=== PATIENT | female | born 1960 | race Caucasian/White ===

== ENCOUNTER 2020-04-18 18:35 | Inpatient (IN) | payer BC ==
--- NOTE | 2020-04-18 18:41 | PDOC ---
Rapid Medical Evaluation Time Seen by Provider: 04/18/20 18:38 Medical Evaluation: Allergies Allergy/AdvReac Type Severity Reaction Status Date / Time Penicillins Allergy Rash Verified 04/18/20 18:37 04/18/20 18:38 60 year old female with pmhx AR (2018) complaining of palpitations and weakness PE: CTA RRR Vital signs significant for HTN and Tachycardia to 120's Plan: EKG Labs Pt to precede to ED for further treatment
[2020-04-18 18:42] VITALS: BMI 34.7
--- OUTSIDE RECORDS SUMMARY | 2020-04-18 18:48 | XMS ---
:1960 Author Organization [facility] Support Name Relationship Address Phone YPS Unavailable [address] [place] [address] BARBARA LAYTON SON [address] [facility] [phone] [address] [place] [address] Re-disclosure Warning The records that you are about to access may contain information from federally- assisted alcohol or drug abuse programs. If such information is present, then the following federally mandated warning applies: This information has been disclosed to you from records protected by federal confidentiality rules (42 CFR part 2). The federal rules prohibit you from making any further disclosure of this information unless further disclosure is expressly permitted by the written consent of the person to whom it pertains or as otherwise permitted by 42 CFR part 2. A general authorization for the release of medical or other information is NOT sufficient for this purpose. The Federal rules restrict any use of the information to criminally investigate or prosecute any alcohol or drug abuse patient.The records that you are about to access may contain highly sensitive health information, the redisclosure of which is protected by Article 27-F of the [facility] Public Health law. If you continue you may haveaccess to information: Regarding HIV / AIDS; Provided by facilities licensed or operated by the [facility] Office of Mental Health; or Provided by the [facility] Office for People With Developmental Disabilities. If such information is present, then the following [facility] mandated warning applies: This information has been disclosed to you from confidential records which are protected by state law. State law prohibits you from making any further disclosure of this information without the specific written consent of the person to whom it pertains, or as otherwise permitted by law. Any unauthorized further disclosure in violation of state law may result in a fine or detention sentence or both. A general authorization for the release of medical or other information is NOT sufficient authorization for further disclosure. Insurance Providers Payer name Policy type / Policy ID Covered Covered alliance party's Policy Plan Coverage type alliance party ID relationship to Shelton Information shelton BC PPO [id number] SP [id number]
--- NOTE | 2020-04-18 19:10 | PDOC ---
Attending Attestation - Resident Resident Name: Leslie Cole - ED Attending Attestation I have performed the following: I have examined & evaluated the patient, The case was reviewed & discussed with the resident, I agree w/resident's findings & plan, Exceptions are as noted - HPI HPI: 04/18/20 19:28 This 60 yo female had an transient episode of lightheadedness ,flushing while walking today. Denies any substernal chest pain or syncope PMH Myocardial infarction 2012 at which time she had atypical symptoms and she was concerned today that her symptoms were her anginal equivalent - Physicial Exam PE: 04/18/20 19:32 Obese 60 yo female experienced head ncat neck supple lungs cta b/l cvs [id number] abdomen nontender skin warm ad dry extremities no edema neuro axox3,no gross focal neuro deficits 04/18/20 20:26 - Medical Decision Making 04/18/20 19:34 PMH CAD.HI,Breast cancer Diff diag includes ACS,gerd, PE, transient arrhythmia and admission to telemetry 04/18/20 20:41 troponin is negative bnp no significant elevated d dimer >2500 04/19/20 00:35 cta chest negative for PE Discharge - Discharge Information Problems reviewed: Yes Clinical Impression/Diagnosis: Pre-syncope, Palpitations Condition: Stable - Follow up/Referral - Patient Discharge Instructions - Post Discharge Activity
--- NOTE | 2020-04-18 19:29 | PDOC ---
History of Present Illness - General Chief Complaint: Palpitations Stated Complaint: LIGHTHEADED/DIZZINESS Time Seen by Provider: 04/18/20 18:38 Past History - Medical History Allergies/Adverse Reactions: Allergies Allergy/AdvReac Type Severity Reaction Status Date / Time Penicillins Allergy Rash Verified 04/18/20 18:37 Home Medications: Ambulatory Orders Amlodipine Besylate [Norvasc -] 5 mg PO DAILY 04/18/20 Aspirin [ASA -] 81 mg PO DAILY 04/18/20 Telmisartan [Micardis] 80 mg PO DAILY 04/18/20 Cancer: Yes (BREAST CA) Cardiac Disorders: Yes (MD) COPD: No HTN: Yes (NO MEDS) - Surgical History Cardiac Surgery: Yes (stents) - Psycho-Social/Smoking History Smoking Status: No Smoking History: Former smoker Have you smoked in the past 12 months: No Number of Cigarettes Smoked Daily: 0 Information on smoking cessation initiated: No - Substance Abuse Hx (Audit-C & DAST Scrn) How often the patient has a drink containing alcohol: Never Score: In Men: 4 or > Positive; In Women: 3 or > Positive: 0 Screen Result (Pos requires Nsg. Audit-10AR): Negative In the last yr the pt used illegal drug/Rx for NonMed reason: No Score: Yes response is considered Positive: 0 Screen Result (Positive result requires Nsg. DAST-10): Negative *Physical Exam - Vital Signs Last Vital Signs Temp Pulse Resp BP Pulse Ox 97.7 F 123 H 20 177/99 H 100 04/18/20 18:38 04/18/20 18:38 04/18/20 18:38 04/18/20 18:38 04/18/20 18:38 ED Treatment Course - LABORATORY CBC & Chemistry Diagram: 04/18/20 19:20 04/18/20 19:20 - RADIOLOGY Radiology Studies Ordered: Category Date Time Status CHEST PA & LAT [RAD] Stat Radiology 04/18/20 19:27 Ordered Medical Decision Making - Medical Decision Making 04/18/20 19:27 HPI: 60yo F hx obesity, CAD s/p stent on aspirin no AC, HTN, HLD, pre-DM (diet- controlled), and breast CA (s/p mastectomy, in remission) presents from home c/o 6pm dinner, USOH, walking from table had sudden onset 30 second lightheadedness, palpitations, nausea, and flushing, resolved on own. Pt's last visit was for MD which pt states was atypical (non-CP/SOB) sx so was concerning was having another MD. Denies CP, SOB, F/C, headache, N/T, weakness, syncope, cough, recent illness, sick contacts, travel, leg pain or swelling, hx DVT/PE, hormone use, immobilization, recent surgery, abdominal pain, vomiting, D/C, blood in stool, urinary sx. Cardio - [facility] PCP - Ranjan ROS: Constitutional: Negative for chills, fever, fatigue, diaphoresis. HENT: Negative for sore throat, rhinorrhea, congestion. Eyes: Negative for visual disturbance. Respiratory: Negative for shortness of breath, cough, and wheezing. Cardiovascular: Positive for palpitations. Negative for chest pain and leg swelling. Gastrointestinal: Positive for nausea. Negative for abdominal pain, blood in stool, constipation, diarrhea, and vomiting. Genitourinary: Negative for dysuria, flank pain, and hematuria. Musculoskeletal: Negative for myalgias, back pain, and neck pain. Skin: Positive for flushing. Negative for rash. Neurological: Positive for light-headedness, dizziness. Negative for vertigo, syncope, weakness, numbness and headaches. Psychiatric/Behavioral: Negative for behavioral problems and confusion. PE: Gen: Alert, NAD, comfortable-appearing, obese HEENT: PERRL, EOMI, MMM, NCAT. No conjunctival pallor. Sclera are non-icteric. CV: Tachycardic rate and regular rhythm. No murmurs, rubs, or gallops. PULM: No resp distress. CTAB, no wheezes, rales, or rhonchi. ABD: soft, NT/ND, no rebound tenderness or guarding, no CVA tenderness. BACK: No TTP of c/t/l-spine. No step-offs or deformities. MSK: No bony deformities. 2+ pulses in all extremities. NEURO: AAOx3. PERRL. CN 2-12 intact. 5/5 strength in all extremities. Sensation to light touch intact in all extremities. No abnormal nystagmus. EXTREMITIES: No cyanosis. No clubbing. No edema. No calf tenderness. PSYCH: Normal mood and thought pattern. SKIN: Warm and dry. Normal capillary refill. No rashes. No jaundice. MDM: 60yo F hx obesity, CAD s/p stent on aspirin no AC, HTN, HLD, pre-DM (diet- controlled), and breast CA (s/p mastectomy, in remission) presents from home with transient presyncopal episode with palpitations, nausea, flushing, and lightheadedness after eating this PM. Tachycardic, hypertensive, otherwise hemodynamically stable, afebrile, neurologically intact. Ddx: ACS vs PE vs presyncope, arrhythmia, metabolic derangement, thyroid pathology, anemia, PNA, infection, vasovagal, orthostatic -EKG -CXR -Dimer, trop, syncope/ACS labs -ASA (pt already took 81mg) -IVF -Admit tele obs 04/18/20 22:36 EKG: sinus tachycardia with PVCs, 109bpm, QTc 465ms, normal axis, no TWIs, no ST elevations or depressions Labs reviewed. D-dimer elevated. WBC 3.4 (baseline per pt). -CTPE -Cancel CXR 04/18/20 23:32 CTPE reviewed: no PE. Non-emergent findings (thyroid, liver, spleen) discussed with pt. Radiologist read printed and given to pt. -Admit tele obs ACS and presyncope Discharge - Discharge Information Problems reviewed: Yes Clinical Impression/Diagnosis: Pre-syncope, Palpitations Condition: Stable - Admission Yes - Follow up/Referral Referrals: Tash Woodruff MD [Primary Care Provider] - - Patient Discharge Instructions - Post Discharge Activity
[2020-04-18 19:39] LABS: BASO % 1.5 % (0-2.0); EOS % 1.2 % (0-4.5); HEMATOCRIT 42.1 % (32.4-45.2); HEMOGLOBIN 14.2 GM/dL (10.7-15.3); LYMPH % 41.3 % (8-40); MCH 29.3 pg (25.7-33.7); MCHC 33.8 g/dl (32.0-36.0); MEAN CELL VOLUME 86.6 fl (80-96); MEAN PLT VOLUME 9.2 fl (7.5-11.1); MONO % 15.5 % (3.8-10.2); NEUT % 40.5 % (42.8-82.8); PLATELET COUNT 244 K/MM3 (134-434); RBC 4.86 M/mm3 (3.60-5.2); RDW 13.1 % (11.6-15.6); WHITE BLOOD COUNT 3.4 K/mm3 (4.0-10.0)
[2020-04-18 20:12] LABS: ALBUMIN 3.8 g/dl (3.4-5.0); ALK PHOS 100 U/L (45-117); ANION GAP 6 MMOL/L (8-16); BILIRUBIN,TOTAL 0.2 mg/dL (0.2-1); BLOOD UREA NITROGEN 14.8 mg/dL (7-18); CALCIUM 9.1 mg/dL (8.5-10.1); CHLORIDE 106 mmol/L (98-107); CO2 29 mmol/L (21-32); CREATININE 0.9 mg/dL (0.55-1.3); GLUCOSE,RANDOM 177 mg/dL (74-106); N-TERMINAL BNP 16.6 pg/ml (5-125); POTASSIUM 4.5 mmol/L (3.5-5.1); SGOT/AST 15 U/L (15-37); SGPT/ALT 30 U/L (13-61); SODIUM 141 mmol/L (136-145); TOT PROT 7.5 g/dl (6.4-8.2)
[2020-04-18] MEDS ORDERED: ASPIRIN 81 MG CHEWABLE TABLETS PO ONE ×2 (20:37)
[2020-04-18] MEDS ORDERED: SODIUM CHLORIDE 0.9% 500 ML INFUS.BAG IV ONE (20:37)
[2020-04-18] MEDS ORDERED: ASPIRIN 81 MG CHEWABLE TABLETS ONE ×2 (20:48→21:01)
--- NOTE | 2020-04-18 23:34 | PN ---
Teaching Attending Note Name of Resident: Larry Olson ATTENDING PHYSICIAN STATEMENT I saw and evaluated the patient. I reviewed the resident's note and discussed the case with the resident. I agree with the resident's findings and plan as documented. SUBJECTIVE: Patient is a 60 year old woman with a PMH of Penicillin allergy, Obesity, CAD (s/p stent on Aspirin), [place], HTN, HLD, Hysterectomy for fibroids, Diet-controlled DM and Breast cancer (s/p mastectomy; in remission) presents from home with transient presyncopal episode with palpitations, nausea, flushing, and lightheadedness after eating this PM. Patient denies chest pain, shortness of breath, abdominal pain, headache, fever, chills, vomiting, diarrhea, constipation, dysuria, frequency, urgency, melena, hematochezia or hematuria. Denies alcohol, tobacco or illicit drug use. No sick contacts or recent travels. Family history of thyroid cancer in mother and CAD in father. OBJECTIVE: Alert Vital Signs Period Temp Pulse Resp BP Sys/Orellana Pulse Ox Last 24 Hr 97.7 F 108-123 18-20 135-177/81-99 95-100 HEENT: No Jaundice, eye redness or discharge, PERRLA, EOMI. Normocephalic, atraumatic. External ears are normal and hearing is grossly intact. No nasal discharge. Neck: Supple, nontender. No palpable adenopathy or thyromegaly. No JVD Chest: Good effort. Clear to auscultation and percussion. Heart: Regular. No S3, rub or murmur Abdomen: Not distended, soft, nontender and no HSM. No rebound or guarding. Normal bowel sounds. Ext: Peripheral pulses intact. No leg edema. Skin: Warm and dry. No petechiae, rash or ecchymosis. Neuro: Alert. Oriented x3. CN 2-12 grossly intact. Sensation grossly intact in all four extremities and DTR are symmetric. Psych: Appropriate mood and affect. Good insight. Home Medications Medication Instructions Recorded Amlodipine Besylate [Norvasc -] 5 mg PO DAILY 04/18/20 Aspirin [ASA -] 81 mg PO DAILY 04/18/20 Telmisartan [Micardis] 80 mg PO DAILY 04/18/20 Abnormal Lab Results 04/18/20 04/18/2004/18/20 19:20 19:20 19:20 WBC 3.4 L Absolute Neuts (auto) 1.4 L Neutrophils % 40.5 L D Lymphocytes % 41.3 H D Monocytes % 15.5 H PTT (Actin FS) 43.7 H D-Dimer Anion Gap 6 L Random Glucose 177 H 04/18/20 19:20 WBC Absolute Neuts (auto) Neutrophils % Lymphocytes % Monocytes % PTT (Actin FS) D-Dimer 2455 H Anion Gap Random Glucose Current Medications Generic Name Dose Route Start Last Admin Trade Name Freq PRN Reason Stop Dose Admin Enoxaparin Sodium 40 mg 04/19/20 10:00 Lovenox - SQ DAILY JAVY Insulin Aspart 1 vial 04/19/20 07:00 Novolog Vial Sliding Scale - SQ ACHS [facility] Protocol ASSESSMENT AND PLAN: 1. Presyncope - Cause unclear, but may be partly due to hypertensive encephalopathy. CTA chest/thorax didnot show pulmonary embolism but showed right thyroid lobe enlargement and right hepatic hemangioma. EKG shows sinus tachycardia at 109/minute, PVCs, LAE and QTc 465 with no significant acute ischemic ST-T wave changes. Initial troponin is negative. ER staff prescribed Aspirin and IV NS for the patient. Will admit to telemetry, get urinalysis STAT, urine toxicology, trend troponin, repeat EKG, get ECHO, head CT, carotid doppler, fasting lipids, thyroid ultrasound, do neurochecks and implement fall/aspiration/seizure precautions. Consult Cardiology/PT/Neurology/Endocrine. Will continue comprehensive care for all of patients comorbid conditions. 2. Diet-controlled DM Will get HbA1c and implement sliding scale insulin regimen. Provide comprehensive diabetes care with patient teaching and counseling about the importance of adherence to prescribed diabetes regimen, euglycemia, eye care and foot care. 3. Obesity Counseled on the risks associated with obesity. Will provide patient all the necessary assistance, counseling and positive reinforcement to facilitate weight loss. Consult foundry worker general. 4. Hypertension Will restart suitable outpatient antihypertensive drugs when clinically appropriate. Subsequently, will revise regimen to ensure [id number] excellent BP control. Patient counseled on the injurious effects of uncontrolled hypertension. Nonpharmacologic measures to control hypertension like weight loss, salt restriction and exercise stressed. Importance of adherence to treatment regimen and attainment of normotension emphasized. 5. DVT prophylaxis - Lovenox 40 mg SQ q 24 hours. 6. Advance directives - Full code
--- NOTE | 2020-04-19 00:29 | HP ---
CHIEF COMPLAINT: PCP - Ranjan HISTORY OF PRESENT ILLNESS: Ms. Velazquez is a 60yo F hx obesity, CAD s/p stent on aspirin no AC, HTN, HLD, pre-DM (diet-controlled), and breast CA (s/p mastectomy, in remission) presents from home c/o sudden onset lightheadedness, palpitations, and flushing immediately after getting up and walking around her kitchen after dinner. The patient denies ever experiencing this sensation in the past and explained that the sensation lasted only 30 seconds. The patient became panicked due to the symptoms and arrived to the ED. Pt's last visit was for HI in 2012 where she experienced pain in BL UE without CP and experienced sob. Denies CP, SOB, F/C, headache, N/T, weakness, syncope, cough, recent illness, sick contacts, travel, leg pain or swelling, hx DVT/PE, hormone use, immobilization, recent surgery, abdominal pain, vomiting, D/C, blood in stool, urinary sx. Family hx: Mother had thyroid cancer Father CAD - from smoking Cardio - [facility] Recent Travel: denies PAST MEDICAL HISTORY: PAST SURGICAL HISTORY: Social History: Smoking: denies Alcohol: denies Drugs: denies Allergies Penicillins Allergy (Verified 04/18/20 18:37) Rash HOME MEDICATIONS: Home Medications Medication Instructions Recorded Amlodipine Besylate [Norvasc -] 5 mg PO DAILY 04/18/20 Aspirin [ASA -] 81 mg PO DAILY 04/18/20 Telmisartan [Micardis] 80 mg PO DAILY 04/18/20 REVIEW OF SYSTEMS see above PHYSICAL EXAMINATION Vital Signs - 24 hr 04/18/20 04/18/20 04/18/20 18:38 19:52 23:31 Temperature 97.7 F Pulse Rate 123 H Pulse Rate [ 108 H Apical] Respiratory 20 18 Rate Blood Pressure 177/99 H Blood Pressure 135/81 [Right Arm] O2 Sat by Pulse 100 95 98 Oximetry (%) GENERAL: Awake, alert, and fully oriented, in no acute distress. HEAD: Normal with no signs of trauma. LUNGS: Breath sounds equal, clear to auscultation bilaterally. No wheezes, and no crackles. No accessory muscle use. HEART: Regular rate and rhythm, normal S1 and S2 without murmur, rub or gallop. ABDOMEN: Soft, nontender, not distended, normoactive bowel sounds, no guarding, no rebound, no masses. No hepatomegaly or splenomegaly. LOWER EXTREMITIES: 2+ pulses, warm, well-perfused. No calf tenderness. No peripheral edema. Laboratory Results - last 24 hr 04/18/20 04/18/20 04/18/20 19:20 19:20 19:20 WBC 3.4 L RBC 4.86 Hgb 14.2 Hct 42.1 MCV 86.6 MCH 29.3 MCHC 33.8 RDW 13.1 Plt Count 244 MPV 9.2 Absolute Neuts (auto) 1.4 L Neutrophils % 40.5 L D Lymphocytes % 41.3 H D Monocytes % 15.5 H Eosinophils % 1.2 Basophils % 1.5 Nucleated RBC % 0 PTT (Actin FS) 43.7 H D-Dimer Sodium 141 Potassium 4.5 Chloride 106 Carbon Dioxide 29 Anion Gap 6 L BUN 14.8 Creatinine 0.9 Est GFR (CKD-EPI)AfAm 79.98 Est GFR (CKD-EPI)NonAf 69.01 Random Glucose 177 H Calcium 9.1 Total Bilirubin 0.2 AST 15 ALT 30 Alkaline Phosphatase 100 Creatine Kinase 65 Troponin I < 0.02 B-Natriuretic Peptide 16.6 Total Protein 7.5 Albumin 3.8 Lipase TSH Free T4 04/18/20 04/18/20 04/18/20 19:20 19:20 22:27 WBC RBC Hgb Hct MCV MCH MCHC RDW Plt Count MPV Absolute Neuts (auto) Neutrophils % Lymphocytes % Monocytes % Eosinophils % Basophils % Nucleated RBC % PTT (Actin FS) D-Dimer 2455 H Sodium Potassium Chloride Carbon Dioxide Anion Gap BUN Creatinine Est GFR (CKD-EPI)AfAm Est GFR (CKD-EPI)NonAf Random Glucose Calcium Total Bilirubin AST ALT Alkaline Phosphatase Creatine Kinase Troponin I < 0.02 B-Natriuretic Peptide Total Protein Albumin Lipase 106 TSH 1.62 Free T4 0.92 ASSESSMENT/PLAN: Ms. Velazquez is a 60yo F hx obesity, CAD s/p stent on aspirin, HTN, HLD, pre-DM (diet-controlled), and breast CA presents from home c/o sudden onset lightheadedness, palpitations, and flushing. 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 Yang - Consult GI - Dr. Casillas - T4 and TSH WNL #HTN - Continue home anti-hypertensives onces medications have been reconciled with the pharmacy #HLD - Continue home statin #DVT ppx - Lovenox #FEN - IV NS - monitory lytes - diabetic sodium diet #DISPO - telemetry #ADVANCED DIRECTIVE - full code ATTENDING PHYSICIAN STATEMENT I saw and evaluated the patient. I reviewed the resident's note and discussed the case with the resident. I agree with the resident's findings and plan as documented. SUBJECTIVE: OBJECTIVE: ASSESSMENT AND PLAN:
--- OUTSIDE RECORDS SUMMARY | 2020-04-19 00:41 | XMS ---
:1960 Author Organization [facility] Support Name Relationship Address Phone [facility] Unavailable [address] [place] [address] Y[employer] Unavailable [address] [place] [address] BARBARA LAYTON SON [address] [facility] [address] Re-disclosure Warning The records that you are [...] is protected by Article 27-F of the [facility] Public Health law. If you continue you may haveaccess to information: Regarding HIV / AIDS; Provided by facilities licensed or operated by the [facility] Office of Mental Health; or Provided by the [facility] Office for People With Developmental Disabilities. If such information is present, then the following [facility] mandated warning applies: This information has been [...] law may result in a fine or half-way sentence or both. A general authorization for the release of medical or other information is NOT sufficient authorization for further disclosure. Insurance Providers Payer name Policy type / Policy ID Covered Covered republican's Policy Plan Coverage type republican ID relationship to Shel[place] Information shelton BC PPO [id number] SP [id number]
[2020-04-19 06:51] LABS: BASO % 1.1 % (0-2.0); EOS % 1.1 % (0-4.5); HEMATOCRIT 39.1 % (32.4-45.2); HEMOGLOBIN 13.3 GM/dL (10.7-15.3); LYMPH % 40.8 % (8-40); MCHC 34.1 g/dl (32.0-36.0); MEAN CELL VOLUME 85.1 fl (80-96); MEAN PLT VOLUME 9.4 fl (7.5-11.1); PLATELET COUNT 232 K/MM3 (134-434); RDW 13.2 % (11.6-15.6); WHITE BLOOD COUNT 3.5 K/mm3 (4.0-10.0)
[2020-04-19] MEDS: INSULIN SLIDING SCALE (NOVOLOG) 1 VIAL SQ SCH ×2 (07:11→11:08)
[2020-04-19 07:18] LABS: ALBUMIN 3.5 g/dl (3.4-5.0); BILIRUBIN,TOTAL 0.3 mg/dL (0.2-1); BLOOD UREA NITROGEN 11.5 mg/dL (7-18); CALCIUM 8.6 mg/dL (8.5-10.1); CREATININE 0.6 mg/dL (0.55-1.3); MAGNESIUM 2.3 mg/dL (1.8-2.4); TOT PROT 6.7 g/dl (6.4-8.2)
--- NOTE | 2020-04-19 08:40 | CONSULT ---
Consultation: REQUESTING PROVIDER: CONSULT REQUEST: We have been asked to medically evaluate this patient for thyroid enlargement, breast Ca. HISTORY OF PRESENT ILLNESS: 60 y/o F PMHx Breast Ca (s/p Mastectomy, Radiation, Chemotherapy), CAD (s/p Distal LAD Stent placed at [facility] 2012), HTN, HLD, PreDM, presents with presyncopal sx's (Lightheadedness, palpitations) that occured during ambulation and self-resolved after ~30 seconds. Patient experienced these sx's for the first time prompting ED evaluation. Did not take anything at home for sx's, Believes this may be related to recent stress from settling [employer] (passed recently from overdose) however unable to identify any other triggers. In the ED, patient was found to be in Sinus tachycardia however labwork revealed elevated D-Dimer prompting CTA which was negative for PE. Initial Labwork also reveals Neutropenia (baseline), TSH 1.62, FT4 0.92. Oncology was consulted as CTA reveals mild enlargement of partially imaged R Thyroid Lobe. Follows with Dr. Gabriela Chan ([facility]). Last colonoscopy 1 year ago; advised to follow up in 3 years due to polyp. Denies fevers, chills, chest pain, SOB, nausea, vomiting, diarrhea, constipation. Denies any recent travel, sick contacts, trauma. No recent medication changes. PMHx: As per HPI PSHx: partial hysterectomy from fibroids, x2, Cardiac Cath, C-Scope Social: Quit tobacco use in Teenage years, Occasional EtOH use, Denies drug use, Ambulation with out assistance, lives with son, works as a retail sales clerk at [employer]. FHx: Mother with CVA, thyroid removed as a child for unknown reason, ?Colon Ca (on certificate but family was unaware of diagnosis), Father with CAD, Bladder Ca (smoker). REVIEW OF SYSTEMS: As per HPI PHYSICAL EXAMINATION Vital Signs Temperature 97.8 F 04/19/20 05:30 Pulse Rate 90 04/19/20 05:30 Respiratory Rate 16 04/19/20 01:33 Blood Pressure 139/89 04/19/20 05:30 O2 Sat by Pulse Oximetry (%) 97 04/19/20 05:30 GENERAL: A&Ox3, NAD HEAD: NCAT EYES: PERRL, EOMI EARS, NOSE, THROAT: Moist mucous membranes NECK: Supple LUNGS: Diminished breath sounds at the bases, No wheezes HEART: Regular rate and rhythm, normal S1 and S2 without murmur ABDOMEN: Soft, nontender, not distended, + bowel sounds, no guarding MUSCULOSKELETAL: No CVA tenderness. EXTREMITIES: No edema. NEUROLOGICAL: Cranial nerves II-XII intact. SKIN: Warm, dry Laboratory Last Values WBC 3.5 K/mm3 (4.0-10.0) L 04/19/20 06:09 RBC 4.60 M/mm3 (3.60-5.2) 04/19/20 06:09 Hgb 13.3 GM/dL (10.7-15.3) 04/19/20 06:09 Hct 39.1 % (32.4-45.2) 04/19/20 06:09 MCV 85.1 fl (80-96) 04/19/20 06:09 MCH 29.0 pg (25.7-33.7) 04/19/20 06:09 MCHC 34.1 g/dl (32.0-36.0) 04/19/20 06:09 RDW 13.2 % (11.6-15.6) 04/19/20 06:09 Plt Count 232 K/MM3 (134-434) 04/19/20 06:09 MPV 9.4 fl (7.5-11.1) 04/19/20 06:09 Absolute Neuts (auto) 1.3 K/mm3 (1.5-8.0) L 04/19/20 06:09 Neutrophils % 38.0 % (42.8-82.8) L 04/19/20 06:09 Lymphocytes % 40.8 % (8-40) H 04/19/20 06:09 Monocytes % 19.0 % (3.8-10.2) H 04/19/20 06:09 Eosinophils % 1.1 % (0-4.5) 04/19/20 06:09 Basophils % 1.1 % (0-2.0) 04/19/20 06:09 Nucleated RBC % 0 % (0-0) 04/19/20 06:09 PTT (Actin FS) 43.7 SECONDS (25.2-36.5) H 04/18/20 19:20 D-Dimer 2455 ng/ml (0-500) H 04/18/20 19:20 Sodium 142 mmol/L (136-145) 04/19/20 06:09 Potassium 4.0 mmol/L (3.5-5.1) 04/19/20 06:09 Chloride 108 mmol/L (98-107) H 04/19/20 06:09 Carbon Dioxide 29 mmol/L (21-32) 04/19/20 06:09 Anion Gap 5 MMOL/L (8-16) L 04/19/20 06:09 BUN 11.5 mg/dL (7-18) 04/19/20 06:09 Creatinine 0.6 mg/dL (0.55-1.3) 04/19/20 06:09 Est GFR (CKD-EPI)AfAm 114.02 04/19/20 06:09 Est GFR (CKD-EPI)NonAf 98.38 04/19/20 06:09 POC Glucometer 116 UNITS (80-120) 04/19/20 07:08 Random Glucose 115 mg/dL (74-106) H 04/19/20 06:09 Calcium 8.6 mg/dL (8.5-10.1) 04/19/20 06:09 Magnesium 2.3 mg/dL (1.8-2.4) 04/19/20 06:09 Total Bilirubin 0.3 mg/dL (0.2-1) 04/19/20 06:09 AST 11 U/L (15-37) L 04/19/20 06:09 ALT 24 U/L (13-61) 04/19/20 06:09 Alkaline Phosphatase 88 U/L (45-117) 04/19/20 06:09 Creatine Kinase 65 U/L (26-192) 04/18/20 19:20 Troponin I < 0.02 ng/ml (0.00-0.05) 04/18/20 22:27 B-Natriuretic Peptide 16.6 pg/ml (5-125) 04/18/20 19:20 Total Protein 6.7 g/dl (6.4-8.2) 04/19/20 06:09 Albumin 3.5 g/dl (3.4-5.0) 04/19/20 06:09 Lipase 106 U/L (73-393) 04/18/20 19:20 TSH 1.62 uIU/ml (0.358-3.74) 04/18/20 22:27 Free T4 0.92 ng/dl (0.76-1.46) 04/18/20 22:27 ASSESSMENT/PLAN: 60 y/o F PMHx Breast Ca (s/p Mastectomy, Radiation, Chemotherapy), CAD (s/p Distal LAD Stent placed at [facility] 2012), HTN, HLD, PreDM, presents with presyncopal sx's (Lightheadedness, palpitations). Initial Labwork reveals Neutropenia (baseline), TSH 1.62, FT4 0.92. Oncology was consulted as CTA reveals mild enlargement of partially imaged R Thyroid Lobe. #?Enlarged Thyroid -Found incidentally on CTA in the setting of Breast Ca Hx and Unclear FHx of Thyroid Disease -TSH and FT4 noted above -Outpatient Thyroid Sonogram -Close follow up with Dr. Gabriela Chan ([facility], primary oncologist) #Splenic Lesion -Found incidentally on CTA -Splenic US to evaluate further #Leukopenia/Neutropenia -Afebrile, nontoxic appearing, Patient says she is at baseline Dispo: We will continue to follow the patient. Thank you for this consultative opportunity. ATTENDING PHYSICIAN STATEMENT I saw and evaluated the patient. I reviewed the resident's note and discussed the case with the resident. I agree with the resident's findings and plan as documented. SUBJECTIVE: OBJECTIVE: ASSESSMENT AND PLAN:
[2020-04-19 09:17] LABS: EPI CELLS 36 /uL (0-25.1); HYALINE CASTS 1 /uL (0-3.1); PH,URINE 6.5 (5.0-8.0); URINE APPEARANCE CLEAR; URINE BACTERIA 1531 /uL (0-1359); URINE BILIRUBIN NEGATIVE (NEGATIVE); URINE COLOR YELLOW; URINE GLUCOSE (UA) NEGATIVE (NEGATIVE); URINE KETONE NEGATIVE (NEGATIVE); URINE LEUK ESTERASE 2+ (NEGATIVE); URINE NITRITE NEGATIVE (NEGATIVE); URINE PROTEIN NEGATIVE (NEGATIVE); URINE RBC 29 /uL (0-23.9); URINE UROBILINOGEN 0.2 mg/dL (0.2-1.0); URINE WBC 188 /uL (0-25.8)
[2020-04-19] MEDS ORDERED: ENOXAPARIN NA (PORCINE) 40 MG/0.4 ML DISP.SYRIN SQ SCH (10:00)
--- NOTE | 2020-04-19 10:05 | EKG ---
Test Reason : Blood Pressure : / mmHG Vent. Rate : 109 BPM Atrial Rate : 109 BPM P-R Int : 172 ms QRS Dur : 088 ms QT Int : 346 ms P-R-T Axes : 066 014 043 degrees QTc Int : 465 ms SINUS TACHYCARDIA WITH OCCASIONAL PREMATURE VENTRICULAR COMPLEXES POSSIBLE LEFT ATRIAL ENLARGEMENT BORDERLINE ECG WHEN COMPARED WITH ECG OF 03-NOV-2012 08:59, PREMATURE VENTRICULAR COMPLEXES ARE NOW PRESENT NON-SPECIFIC CHANGE IN ST SEGMENT IN ANTERIOR LEADS T WAVE INVERSION NO LONGER EVIDENT IN ANTEROLATERAL LEADS Confirmed by MD Ryley, Thee ([id number]) on 04/19/2020 10:04:36 AM Referred By: Confirmed By:Thee Hedrick MD
--- NOTE | 2020-04-19 10:36 | CON.GI ---
Consult Consult Specialty:: GI Referred by:: Hospitalist Service Reason for Consultation:: Abnormal imaging of the liver - History of Present Illness Chief Complaint: Lightheadedness, palpitations and flushing History of Present Illness: 60F admitted for evaluation of sudden onset lightheadedness, palpitations and flushing. Called to evaluate a suspected hepatic hemangioma (right hepatic lobe 4x3cm) seen on CTA of chest. Lung nodules were noted as well as splenic nodule. No GI complaints. Follows with smooth stucco resurfacer Dr. Prosper Cabrera. She had recent colonoscopy within the last 6 months that was unrevealing. Mother may have had a history of colon cancer. No family history of liver disease, hepatocellular carcinoma. Denies unintentional weight loss. - Alcohol/Substance Use Hx Alcohol Use: No History of Substance Use: reports: None - Smoking History Smoking history: Former smoker Have you smoked in the past 12 months: No Aproximately how many cigarettes per day: 0 - Social History Usual Living Arrangement: Alone ADL: Independent Occupation: Works for [employer] of : [facility] History of Recent Travel: No Home Medications - Allergies Allergies/Adverse Reactions: Allergies Allergy/AdvReac Type Severity Reaction Status Date / Time Penicillins Allergy Rash Verified 04/18/20 18:37 - Home Medications Home Medications: Ambulatory Orders Amlodipine Besylate [Norvasc -] 5 mg PO DAILY 04/18/20 Aspirin [ASA -] 81 mg PO DAILY 04/18/20 Telmisartan [Micardis] 80 mg PO DAILY 04/18/20 Family Medical History Other Family History: Mother: : CVA. Possibly with colon cancer. Father: : Bladder cancer. 1 sister, 2 brothers, healthy. 1 son: (did not want to talk about the details). 1 son: Healthy. No known history of liver disease Physical Exam-GI Vital Signs: Vital Signs Temperature 97.8 F 04/19/20 05:30 Pulse Rate 90 04/19/20 05:30 Respiratory Rate 16 04/19/20 01:33 Blood Pressure 139/89 04/19/20 05:30 O2 Sat by Pulse Oximetry (%) 97 04/19/20 05:30 Labs: CBC, BMP 04/19/20 06:09 04/19/20 06:09 Imaging - Results Cat Scan: Report Reviewed, Image Reviewed Problem List - Problems (1) Liver lesion, right lobe Assessment/Plan: Suspected hemagioma, seen on prior imaging as well. Also with splenic lesion and lung nodules Advise: Screening hepatitis A/B/C serologies (Hepatitis A/B panel, HCV diagnostic) Outpatient follow-up with her smooth stucco resurfacer Dr. Cabrera for further imaging. Explained this to Archie Marcus. Hematology evaluation of splenic lesion Evaluation of lung nodules per primary team Recall GI as needed Code(s): K76.9 - LIVER DISEASE, UNSPECIFIED
[2020-04-19 11:01] VITALS: TEMP 98.2
[2020-04-19] MEDS ORDERED: ENOXAPARIN NA (PORCINE) 40 MG/0.4 ML DISP.SYRIN SQ ONE (11:59)
--- NOTE | 2020-04-19 12:44 | DS ---
Physical Exam: SUBJECTIVE: Patient seen and examined in the ED holding area. Denies further lightheadedness, palpitations, and/or flushing since the one episode at home. States she has been experiencing a lot of emotional stress after the recent of her son and feels that this stress is what precipitated her symptoms. Pt states she would like to go home. OBJECTIVE: This is a 60 yr old female w/ a hx of obesity, CAD s/p stent on Aspirin, HTN, HLD, pre-DM, breast CA s/p mastectomy, and ND in 2012 who came to the ED after having sudden onset lightheadedness, palpitations, flushing after getting up from a chair that lasted 30 seconds. Pt states the symptoms resolved on their own and have not returned. Pt was noted to have elevated d-dimer, CTA was neg for PE. Chest/Thorax CT showed an enlarged thyroid, a right hepatic lobe hemangioma, and a splenic nodule Covid pending Troponin Negative EKG: sinus tachycardia with occasional PVCs Vital Signs Period Temp Pulse Resp BP Sys/Orellana Pulse Ox Last 24 Hr 97.7 F-98.2 F 90-123 15-20 116-177/81-99 95-100 PHYSICAL EXAM GENERAL: The patient is awake, alert, and fully oriented, in no acute distress. HEAD: Normal with no signs of trauma. EYES: PERRL, extraocular movements intact, sclera anicteric, conjunctiva clear. ENT: Ears normal, nares patent, oropharynx clear without exudates, moist mucous membranes. NECK: Trachea midline, full range of motion, supple. LUNGS: Breath sounds equal, clear to auscultation bilaterally, no wheezes, no crackles, no accessory muscle use. HEART: Regular rate and rhythm, S1, S2 without murmur, rub or gallop. ABDOMEN: Soft, nontender, nondistended, normoactive bowel sounds, no guarding, no rebound, no hepatosplenomegaly, no masses. EXTREMITIES: 2+ pulses, warm, well-perfused, no edema. NEUROLOGICAL: Cranial nerves II through XII grossly intact. Normal speech, gait not observed. PSYCH: Normal mood, normal affect. SKIN: Warm, dry, normal turgor, no rashes or lesions noted. LABS Laboratory Results - last 24 hr 04/18/20 04/18/20 04/18/20 19:20 19:20 19:20 WBC 3.4 L RBC 4.86 Hgb 14.2 Hct 42.1 MCV 86.6 MCH 29.3 MCHC 33.8 RDW 13.1 Plt Count 244 MPV 9.2 Absolute Neuts (auto) 1.4 L Neutrophils % 40.5 L D Lymphocytes % 41.3 H D Monocytes % 15.5 H Eosinophils % 1.2 Basophils % 1.5 Nucleated RBC % 0 PTT (Actin FS) 43.7 H D-Dimer Sodium 141 Potassium 4.5 Chloride 106 Carbon Dioxide 29 Anion Gap 6 L BUN 14.8 Creatinine 0.9 Est GFR (CKD-EPI)AfAm 79.98 Est GFR (CKD-EPI)NonAf 69.01 POC Glucometer Random Glucose 177 H Calcium 9.1 Magnesium Total Bilirubin 0.2 AST 15 ALT 30 Alkaline Phosphatase 100 Creatine Kinase 65 Troponin I < 0.02 B-Natriuretic Peptide 16.6 Total Protein 7.5 Albumin 3.8 Lipase TSH Free T4 Urine Color Urine Appearance Urine pH Ur Specific [place] Urine Protein Urine Glucose (UA) Urine Ketones Urine Blood Urine Nitrite Urine Bilirubin Urine Urobilinogen Ur Leukocyte Esterase Urine WBC (Auto) Urine RBC (Auto) Urine Casts (Auto) U Epithel Cells (Auto) Urine Bacteria (Auto) 04/18/20 04/18/20 04/18/20 19:20 19:20 22:27 WBC RBC Hgb Hct MCV MCH MCHC RDW Plt Count MPV Absolute Neuts (auto) Neutrophils % Lymphocytes % Monocytes % Eosinophils % Basophils % Nucleated RBC % PTT (Actin FS) D-Dimer 2455 H Sodium Potassium Chloride Carbon Dioxide Anion Gap BUN Creatinine Est GFR (CKD-EPI)AfAm Est GFR (CKD-EPI)NonAf POC Glucometer Random Glucose Calcium Magnesium Total Bilirubin AST ALT Alkaline Phosphatase Creatine Kinase Troponin I < 0.02 B-Natriuretic Peptide Total Protein Albumin Lipase 106 TSH 1.62 Free T4 0.92 Urine Color Urine Appearance Urine pH Ur Specific [place] Urine Protein Urine Glucose (UA) Urine Ketones Urine Blood Urine Nitrite Urine Bilirubin Urine Urobilinogen Ur Leukocyte Esterase Urine WBC (Auto) Urine RBC (Auto) Urine Casts (Auto) U Epithel Cells (Auto) Urine Bacteria (Auto) 04/19/20 04/19/20 04/19/20 06:09 06:09 07:08 WBC 3.5 L RBC 4.60 Hgb 13.3 Hct 39.1 MCV 85.1 MCH 29.0 MCHC 34.1 RDW 13.2 Plt Count 232 MPV 9.4 Absolute Neuts (auto) 1.3 L Neutrophils % 38.0 L Lymphocytes % 40.8 H Monocytes % 19.0 H Eosinophils % 1.1 Basophils % 1.1 Nucleated RBC % 0 PTT (Actin FS) D-Dimer Sodium 142 Potassium 4.0 Chloride 108 H Carbon Dioxide 29 Anion Gap 5 L BUN 11.5 Creatinine 0.6 Est GFR (CKD-EPI)AfAm 114.02 Est GFR (CKD-EPI)NonAf 98.38 POC Glucometer 116 Random Glucose 115 H Calcium 8.6 Magnesium 2.3 Total Bilirubin 0.3 AST 11 L ALT 24 Alkaline Phosphatase 88 Creatine Kinase Troponin I B-Natriuretic Peptide Total Protein 6.7 Albumin 3.5 Lipase TSH Free T4 Urine Color Urine Appearance Urine pH Ur Specific [place] Urine Protein Urine Glucose (UA) Urine Ketones Urine Blood Urine Nitrite Urine Bilirubin Urine Urobilinogen Ur Leukocyte Esterase Urine WBC (Auto) Urine RBC (Auto) Urine Casts (Auto) U Epithel Cells (Auto) Urine Bacteria (Auto) 04/19/20 04/19/20 08:30 11:33 WBC RBC Hgb Hct MCV MCH MCHC RDW Plt Count MPV Absolute Neuts (auto) Neutrophils % Lymphocytes % Monocytes % Eosinophils % Basophils % Nucleated RBC % PTT (Actin FS) D-Dimer Sodium Potassium Chloride Carbon Dioxide Anion Gap BUN Creatinine Est GFR (CKD-EPI)AfAm Est GFR (CKD-EPI)NonAf POC Glucometer 139 Random Glucose Calcium Magnesium Total Bilirubin AST ALT Alkaline Phosphatase Creatine Kinase Troponin I B-Natriuretic Peptide Total Protein Albumin Lipase TSH Free T4 Urine Color Yellow Urine Appearance Clear Urine pH 6.5 Ur Specific [place] 1.035 Urine Protein Negative Urine Glucose (UA) Negative Urine Ketones Negative Urine Blood Trace Urine Nitrite Negative Urine Bilirubin Negative Urine Urobilinogen 0.2 Ur Leukocyte Esterase 2+ H Urine WBC (Auto) 188 Urine RBC (Auto) 29 Urine Casts (Auto) 1 U Epithel Cells (Auto) 36 Urine Bacteria (Auto) 1531 HOSPITAL COURSE: Date of Admission:04/19/20 Date of Discharge: 04/19/20 This is a 60 year old female with a history of obesity, CAD s/p stent on ASA, HTN, HLD, pre-DM, breast CA s/p mastectomy, and ND in 2013 who came to the ED after having sudden onset lightheadedness, palpitations, flushing after getting up from a chair that lasted 30 seconds. Pt states the symptoms resolved on their own and have not returned since being in the ED. Patient had an EKG that showed sinus tachycardia (HR 109) and occasional PVCs. Pt was noted to have an elevated D-Dimer, chest CTA was negative for PE. However, on chest CT the following incidental findings were seen: a 4x3cm hepatic lobe lesion likely representing a hemangioma, a 1.4cm splenic lesion, and a mildly enlarged right thyroid lobe. TSH and T4 were normal. The pt was seen by GI and recommendations were made to follow up with her GI doctor, Dr. Cabrera. The patient was made aware of these findings and was advised to make an appointment with her oncologist Dr Chan and with her PCP. Pt was also found to have a UTI and was started on macrobid 100mg PO daily for 7 days. Minutes to complete discharge: 60 Discharge Summary Problems reviewed: Yes Reason For Visit: PALPITATIONS, PRE-SYNCOPE Current Active Problems Liver lesion, right lobe (Acute) Palpitations (Acute) Pre-syncope (Acute) Condition: Good - Instructions Diet, Activity, Other Instructions: Dear Ms. Velazquez, You came to the ED because you were concerned about sudden lightheadedness, palpitations and flushing. You had an electrocardiogram done which showed a fast heart rate which can be due to anxiety/nervousness. You had an elevated D-Dimer which can sometimes be elevated if you have a blood clot in your lungs, however, we did a CT scan of your chest and you DO NOT have a blood clot in your lungs. On the CT scan you were found to have an enlarged thyroid. We did blood work for your thyroid (TSH and Free T4) and these were normal. However, we recommend that you see your oncologist regarding this finding. On the CT scan, we also noted a small nodule on your spleen which you should also talk about with your Oncologi st.We have also gave you a referral for an MYSQL DBA which you should make an appointment with to see regarding your enlarged thyroid and have a thyroid of your ultrasound. We also noted a small hemangioma on your liver, which are tangled up blood vessels, and we recommend that you make an appointment with your GI doctor, Dr. Cabrera to follow up on this finding and have a hepatitis panel done. You were found to have a UTI (urinary tract infection_ and have started you on antibiotics: Please take MACROBID 100mg by mouth daily twice a day for 7 days Thank You for allowing us to take care of you Please return to the ER if you experience: recurrent lightheadedness, dizziness, chest ludwig, palpitations, or any other new/concerning symptoms Referrals: Ifrah Chan MD [Staff Physician] - 1 Week (follow up regarding enlarged thyroid, and liver and spleen nodule seen on CT scan) Prosper Cabrera MD [Non Staff, Medical] - 1 Week (follow up regarding right h epatic lobe hemangioma seen on CT scan) Tash Woodruff MD [Primary Care Provider] - Disposition: HOME - Home Medications Comprehensive Discharge Medication List: Ambulatory Orders Amlodipine Besylate [Norvasc -] 5 mg PO DAILY 04/18/20 Aspirin [ASA -] 81 mg PO DAILY 04/18/20 Telmisartan [Micardis] 80 mg PO DAILY 04/18/20 Nitrofurantoin Monohyd/M-Cryst [Macrobid -] 100 mg PO BID #14 capsule 04/19/20 Problem List - Problems (1) UTI (urinary tract infection) Assessment/Plan: start macrobid 100mg PO BID x 7 days send urine culture Code(s): N39.0 - URINARY TRACT INFECTION, SITE NOT SPECIFIED (2) Splenic lesion Assessment/Plan: f/u with oncologist Code(s): D73.89 - OTHER DISEASES OF SPLEEN (3) Enlarged thyroid Assessment/Plan: f/u with oncologist for thyroid ultrasound TSH and T4 normal Code(s): E04.9 - NONTOXIC GOITER, UNSPECIFIED (4) Liver lesion, right lobe Assessment/Plan: f/u with GI doctor Code(s): K76.9 - LIVER DISEASE, UNSPECIFIED (5) Palpitations Assessment/Plan: resolved likely due to emotional stress/anxiety EKG: sinus tachycardia with occasional PVCs Code(s): R00.2 - PALPITATIONS This patient is new to me today: Yes Date on this admission: 04/19/20 Emergency Visit: Yes ED Registration Date: 04/19/20 Care time: The patient presented to the Emergency Department on the above date and was hospitalized for further evaluation of their emergent condition. Critical Care patient: No - Discharge Referral Referred to [facility] No
--- NOTE | 2020-04-19 14:01 | CON.CARD ---
Consult Consult Specialty:: cardiology Referred by:: medicine Reason for Consultation:: presyncope - History of Present Illness Chief Complaint: presyncope History of Present Illness: 60F h/o obesity, CAD s/p stent, HTN, HLD, prediabetes, breast cancer s/p mastectomy p/w lightheadedness, palps, flushing. She was in usual state of health, having dinner and had dizziness with palps and feeling of flushing when standing up. undergoing a lot of stress dealing with the estate of her son who . symptoms lasted a few seconds, felt panicked. no chest pain, dyspnea, syncope, edema. no prior episode. Sees Dr. Boyle for cardio - Alcohol/Substance Use Hx Alcohol Use: No History of Substance Use: reports: None - Smoking History Smoking history: Former smoker Have you smoked in the past 12 months: No Aproximately how many cigarettes per day: 0 - Social History Usual Living Arrangement: Alone ADL: Independent Occupation: Works for [employer] History of Recent Travel: No Home Medications - Allergies Allergies/Adverse Reactions: Allergies Allergy/AdvReac Type Severity Reaction Status Date / Time Penicillins Allergy Rash Verified 04/18/20 18:37 - Home Medications Home Medications: Ambulatory Orders Amlodipine Besylate [Norvasc -] 5 mg PO DAILY 04/18/20 Aspirin [ASA -] 81 mg PO DAILY 04/18/20 Telmisartan [Micardis] 80 mg PO DAILY 04/18/20 Nitrofurantoin Monohyd/M-Cryst [Macrobid -] 100 mg PO BID #14 capsule 04/19/20 Family Medical History Family History: Unremarkable Other Family History: Mother: : CVA. Possibly with colon cancer. Father: : Bladder cancer. 1 sister, 2 brothers, healthy. 1 son: (did not want to talk about the details). 1 son: Healthy. No known history of liver disease Review of Systems - Review of Systems Constitutional: reports: No Symptoms Eyes: reports: No Symptoms HENT: reports: No Symptoms Neck: reports: No Symptoms Cardiovascular: reports: No Symptoms Respiratory: reports: No Symptoms Gastrointestinal: reports: No Symptoms Genitourinary: reports: No Symptoms Musculoskeletal: reports: No Symptoms Integumentary: reports: No Symptoms Neurological: reports: No Symptoms Endocrine: reports: No Symptoms Hematology/Lymphatic: reports: No Symptoms Psychiatric: reports: No Symptoms Vital Signs: Vital Signs Temperature 98.2 F 04/19/20 10:53 Pulse Rate 105 H 04/19/20 10:53 Respiratory Rate 18 04/19/20 10:53 Blood Pressure 142/87 04/19/20 10:53 O2 Sat by Pulse Oximetry (%) 97 04/19/20 10:53 Constitutional: Yes: No Distress, Calm Eyes: Yes: Conjunctiva Clear, EOM Intact HENT: Yes: Atraumatic, Normocephalic Neck: Yes: Supple, Trachea Midline Respiratory: Yes: Regular, CTA Bilaterally Gastrointestinal: Yes: Normal Bowel Sounds, Soft Cardiovascular: Yes: Regular Rate and Rhythm JVD: No Carotid Bruit: No Heart Sounds: Yes: S1, S2 Musculoskeletal: No: Back Pain Extremities: No: Cold Edema: No Integumentary: No: Jaundice Neurological: Yes: Alert, Oriented Psychiatric: No: Agitated - Other Data Labs, Other Data: CBC, BMP 04/19/20 06:09 04/19/20 06:09 Troponin, BNP 04/18/20 04/18/20 19:20 22:27 Troponin I < 0.02 < 0.02 B-Natriuretic Peptide 16.6 Troponin, BNP 04/18/20 04/18/20 19:20 22:27 Troponin I < 0.02 < 0.02 B-Natriuretic Peptide 16.6 Assessment/Plan EKG: sinus tach, no ischemic changes [facility] 2013: occluded d-LAD got xience; other cors normal; EF 60%, EDP 10 Echo 2014: TDS; nl LV/EF; dd1; nl RV; nl valves Carotids 2015: mild, nonob plq Holter 2013: NSR, rare PVC; no afib, VT, SVT Abd sono 2017: diffuse fatty infiltration of liver. 60F h/o obesity, CAD s/p stent, HTN, HLD, prediabetes, breast cancer s/p mastectomy p/w lightheadedness, palps, flushing. presyncope, palps - likely in setting of panic attack vs orthostatic (dizzy after standing) vs vasovagal - symptoms resolved - trop neg x 2, EKG no ischemic changes, unlikely ACS - outpatient records reviewed and d/w patient - no recent echo, however less likely cardiac etiology for symptoms - follow up with Dr. Boyle UTI - manage per primary HTN - cont home meds HLD - cont statin CAD - cont aspirin - not on statin due to history of myalgias
[2020-04-19 14:37] VITALS: BP 149/95; PULSE 20
== END 2020-04-19 14:36 | disposition home or self-care (01) | DRG 309 ==
LOC: JER 18:35 → JERBED 22:40 → OBSVTOIN 04-19 02:52
PROVIDERS: ADMIT Internal Medicine; ATTEND Nurse Practitioner Family
DX: R00.2 Palpitations (principal); N39.0 Urinary tract infection, site not specified; R55 Syncope and collapse; E66.9 Obesity, unspecified; Z68.34 Body mass index [BMI] 34.0-34.9, adult; I25.10 Atherosclerotic heart disease of native coronary artery without angina pectoris; I25.2 Old myocardial infarction; E11.9 Type 2 diabetes mellitus without complications; I10 Essential (primary) hypertension; F41.9 Anxiety disorder, unspecified; E78.5 Hyperlipidemia, unspecified; R00.0 Tachycardia, unspecified; D18.09 Hemangioma of other sites; E04.9 Nontoxic goiter, unspecified; R91.8 Other nonspecific abnormal finding of lung field; K76.9 Liver disease, unspecified; Z88.0 Allergy status to penicillin; Z85.3 Personal history of malignant neoplasm of breast; Z95.5 Presence of coronary angioplasty implant and graft
CPT/HCPCS: 36415; 71275-TC; 80053; 81003; 82550; 82962; 83690; 83735; 83880; 84439; 84443; 84484; 85025; 85379; 85730; 93005; 93010; 99285-25; C9803; G0378; Q9967; U0003

== ENCOUNTER → 2020-06-14 | Day surgery (SDC) | payer BC | END | disposition home or self-care (01) | LOC: JRADIR 10:15 | PROVIDERS: ATTEND Internal Medicine | PROC: 0G9K3ZX Drainage of Thyroid Gland, Percutaneous Approach, Diagnostic (ICD-10-PCS; principal; 2020-06-14) | DX: E04.1 Nontoxic single thyroid nodule (principal) | CPT/HCPCS: 10005; 76942; 88173; 88305-TC ==

== ENCOUNTER → 2020-07-05 | Day surgery (SDC) | payer BC | END | disposition home or self-care (01) | LOC: JRADIR 09:58 | PROVIDERS: ATTEND Internal Medicine | PROC: 0G9K3ZX Drainage of Thyroid Gland, Percutaneous Approach, Diagnostic (ICD-10-PCS; principal; 2020-07-05) | DX: E04.1 Nontoxic single thyroid nodule (principal) | CPT/HCPCS: 76942; 88173; 88305-TC ==

== ENCOUNTER 2021-08-24 04:22 | Day surgery (SDC) | payer BC, OTHER ==
[2021-08-21 10:44] VITALS: BMI 32.5
[2021-08-24] MEDS ORDERED: MIDAZOLAM HCL 2 MG/2 ML SINGLE DOSE VIAL ONE (13:30)
[2021-08-24] MEDS ORDERED: DEXMEDETOMIDINE HCL 200 MCG/2 ML IVPB ONE (14:00)
[2021-08-24] MEDS ORDERED: CLINDAMYCIN 900 MG PREMIX BAG IVPB ONE (14:20)
[2021-08-24] MEDS ORDERED: LIDOCAINE 1%/EPI 1:100000 (20 ML MULTI DOSE VIAL) IJ ONE (14:36)
[2021-08-24] MEDS ORDERED: ACETAMINOPHEN INJECTION 100 ML IVPB ONE (14:36)
[2021-08-24] MEDS ORDERED: DESFLURANE GAS 240 ML BOTTLE IH ONE (14:53)
[2021-08-24] MEDS ORDERED: MICROFIBRILLAR COLLAGEN 1 GM EACH TP ONE (15:21)
[2021-08-24] MEDS ORDERED: oxyCODONE HCL 5 MG TABLET PO PRN ×2 (15:56)
[2021-08-24] MEDS ORDERED: ONDANSETRON 4 MG/2 ML VIAL IVPUSH PRN (15:56)
[2021-08-24] MEDS ORDERED: LACTATED RINGERS SOLUTION 1,000 ML IV SCH (16:00)
[2021-08-24 18:10] VITALS: BP 123/80; PULSE 94; TEMP 98
== END 2021-08-24 19:01 | disposition home or self-care (01) ==
LOC: JASU-SURG 04:22
PROVIDERS: ATTEND Surgery
PROC: 0GBH0ZZ Excision of Right Thyroid Gland Lobe, Open Approach (ICD-10-PCS; principal; 2021-08-24 13:30)
DX: D34 Benign neoplasm of thyroid gland (principal)
CPT/HCPCS: 88307-TC; 94760